=== PATIENT | female | born 1985 | race Hispanic/Latino ===

== ENCOUNTER 2019-01-30 01:57 | Inpatient (IN) | payer OTHER ==
[2019-01-30 02:21] VITALS: BMI 30.7
[2019-01-30] MEDS ORDERED: hydrALAZINE 20 MG/ML VIAL SLOW IVP PRN ×2 (02:33→07:26)
[2019-01-30] MEDS ORDERED: Butorphanol Tartrate 1 MG/ML VIAL SLOW IVP PRN (02:33)
[2019-01-30] MEDS ORDERED: Ibuprofen 800 MG TAB PO PRN (02:33)
[2019-01-30] MEDS ORDERED: Promethazine HCl 25 MG/ML VIAL IM PRN ×2 (02:33→07:26)
[2019-01-30] MEDS ORDERED: Lidocaine 1% (PF) 30 ML VIAL SC PRN (02:33)
[2019-01-30] MEDS ORDERED: Ondansetron PF 4 MG/2 ML Vial IVP PRN ×2 (02:33→07:26)
[2019-01-30] MEDS ORDERED: HYDROcodone/Acetaminophen 5/325 mg Tablet PO PRN ×4 (02:33→07:26)
--- NOTE | 2019-01-30 02:35 | PDOC.EVN ---
Event Note - Event Note Event Note: [employer] Time: [address] admit orders (courtesy) for direct admit for Dr Owusu Patient not seen by me Orders placed for admit GBS neg
[2019-01-30] MEDS ORDERED: Lactated Ringer's 1,000 ML IV SCH (02:45)
[2019-01-30] MEDS ORDERED: NS / Oxytocin 40 units/1000ml 1,000 ML ONE (02:47)
[2019-01-30] MEDS ORDERED: Methylergonovine 0.2 MG/ML VIAL ONE (02:48)
[2019-01-30] MEDS ORDERED: Misoprostol 200 MCG TAB ONE (02:48)
[2019-01-30 02:52] LABS: Hemoglobin 12.2 g/dL (12.0-16.0); Mean Corpuscular HGB CONC 34.7 g/dL (32.0-36.0); Mean Corpuscular Hemoglobin 27.7 pg (27.0-31.0); Mean Corpuscular Volume 79.8 fL (78.0-98.0); Platelet Count 219 thou/uL (130-400); White Blood Cell (WBC) Count 6.8 thou/uL (4.8-10.8)
[2019-01-30 03:32] LABS: HBSAg Index 0.39 S/CO (0-0.99); HIV (1/2) Antibody/Antigen Non-Reactive (NonReactive); HIV 1/2 INDEX 0.09 S/CO (<1.00); Hep B Surf Ag Non-Reactive S/CO (NonReactive)
[2019-01-30] MEDS: NS / Oxytocin 40 units/1000ml 1,000 ML IV PRN ×2 (03:43→04:50)
[2019-01-30 05:06] LABS: Syphilis Antibody Nonreactive (Nonreactive); Syphilis Antibody Index 0.03 S/CO (<1.00 Non-Reactive)
[2019-01-30] MEDS ORDERED: Lanolin Ointment 7 GM TUBE TOP PRN (07:26)
[2019-01-30] MEDS ORDERED: Milk Of Magnesia 30 ML UDCUP PO PRN (07:26)
[2019-01-30] MEDS ORDERED: diphenhydrAMINE 25 MG CAP PO PRN (07:26)
[2019-01-30] MEDS ORDERED: Preparation H Ointment 28 GM TUBE PR PRN (07:26)
[2019-01-30] MEDS ORDERED: NS / Oxytocin 40 units/1000ml 1,000 ML IV SCH (07:26)
[2019-01-30] MEDS ORDERED: Methylergonovine 0.2 MG/ML VIAL IM PRN (07:26)
[2019-01-30] MEDS ORDERED: Bisacodyl 10 MG SUPP PR PRN (07:26)
[2019-01-30] MEDS ORDERED: Misoprostol 200 MCG TAB VAG PRN (07:26)
[2019-01-30] MEDS ORDERED: Benzocaine-Menthol 82.5 ML CAN TOP PRN (07:26)
[2019-01-30] MEDS: Ferrous Sulfate 325 MG TAB PO SCH ×2 (10:09→16:26)
[2019-01-30] MEDS: Prenatal Vitamin 1 TAB PO SCH (10:09)
[2019-01-30] MEDS: Docusate Calcium (SURFAK) 240 MG CAP PO SCH ×2 (10:09→21:48)
[2019-01-30] MEDS ORDERED: Varicella virus, LIVE 0.5 ML VIAL SC ONE (11:00)
[2019-01-30] MEDS ORDERED: Measles/Mumps/Rubella 10 MCG/0.5 ML VIAL SC ONE (11:00)
[2019-01-30] MEDS ORDERED: Adacel (T-DAP) 0.5 ML SYRINGE IM ONE (11:00)
[2019-01-30] MEDS: Ibuprofen 800 MG TAB PO SCH ×2 (14:34→21:48)
[2019-01-31] MEDS: Ibuprofen 800 MG TAB PO SCH ×2 (05:34→14:03)
[2019-01-31 06:27] LABS: Hemoglobin 11.7 g/dL (12.0-16.0); Mean Corpuscular HGB CONC 34.4 g/dL (32.0-36.0); Mean Corpuscular Hemoglobin 28.2 pg (27.0-31.0); Mean Corpuscular Volume 81.9 fL (78.0-98.0); Mean Platelet Volume 8.8 fL (7.4-10.4); Platelet Count 202 thou/uL (130-400); RBC Distribution Width 14.3 % (11.5-14.5); Red Blood Cell (RBC) Count 4.15 mill/uL (4.20-5.40); White Blood Cell (WBC) Count 7.9 thou/uL (4.8-10.8)
[2019-01-31] MEDS: Ferrous Sulfate 325 MG TAB PO SCH (09:34)
[2019-01-31] MEDS: Docusate Calcium (SURFAK) 240 MG CAP PO SCH (09:35)
[2019-01-31 10:00] VITALS: BP 112/62; TEMP 97.7
[2019-01-31] MEDS: Prenatal Vitamin 1 TAB PO SCH (12:38)
--- NOTE | 2019-01-31 13:15 | PDOC.PP ---
Post Progress Note Post Day #: 1 PO intake tolerated: yes Flatus: yes Ambulation: yes Vital Signs (12 hours) Temp Pulse Resp BP Pulse Ox 01/31/19 08:25 97.7 F 66 20 112/62 97 01/31/19 05:30 98.5 F 69 16 113/58 L Weight Weight 168 lb - Physical Examination General: NAD Cardiovascular: RRR Abdominal: + bowel sounds, lochia, no distention Extremities: negative homans (B) Psychiatric: A&Ox3, normal affect Result Diagrams: 01/31/19 06:18 Additional Labs: Post Labs Blood Type O POSITIVE 01/30/19 03:06 Hep Bs Antigen Non-Reactive S/CO (NonReactive) 01/30/19 02:43 - Assessment/Plan dioing well ppd 1. desires dc.
== END 2019-01-31 15:30 | disposition home or self-care (01) | DRG 807 ==
LOC: L&D/OP 01:57 → L&D 03:09 → 3SW 07:47
PROVIDERS: ADMIT Obstetrics & Gynecology; ATTEND Obstetrics & Gynecology
PROC: 10E0XZZ Delivery of Products of Conception, External Approach (ICD-10-PCS; principal; 2019-01-30)
DX: O62.3 Precipitate labor (principal); Z37.0 Single live birth; Z3A.39 39 weeks gestation of pregnancy
CPT/HCPCS: 36415; 85027; 86780; 86850; 86900; 86901; 87340; 87389; 90715; 99285; J2001; J2210

== ENCOUNTER 2023-01-22 15:26 | Emergency (ER) | payer OTHER, SELFPAY ==
[~2023-01-22 15:26] MED LIST: Iopamidol-370 76% 500 ML MDV (1 ML CHARGE) ONE
[2023-01-22 16:09] LABS: #Monocytes 0.4 thou/uL (0.11-0.59); #Neutrophils 6.9 thou/uL (1.40-6.50); %Basophils 0.2 % (0.0-1.0); %Eosinophils 0.2 % (0.0-10.0); %Lymphocytes 13.7 % (21.0-51.0); %Monocytes 4.1 % (0.0-10.0); %Neutrophils 81.2 % (42.0-75.0); Hemoglobin 14.2 g/dL (12.0-16.0); Mean Corpuscular HGB CONC 34.2 g/dL (32.0-36.0); Mean Corpuscular Hemoglobin 30.1 pg (27.0-31.0); Mean Corpuscular Volume 88.1 fl (78.0-98.0); Mean Platelet Volume 10.4 fL (7.4-10.4); Platelet Count 276 10x3/uL (130-400); RBC Distribution Width 12.9 % (11.5-14.5); Red Blood Cell (RBC) Count 4.71 mill/uL (4.20-5.40); White Blood Cell (WBC) Count 8.5 10x3/uL (4.8-10.8)
[2023-01-22 16:17] LABS: BHCG - Serum Negative (NEGATIVE); Pregs Control Background? CLEAR/WHITE (CLR/WHITE); Pregs Control Bar Appear? YES (CONTROL BAR)
[2023-01-22 16:39] LABS: ALT (SGPT) 15 U/L (8-55); AST (SGOT) 19 U/L (5-34); Albumin 4.4 g/dL (3.5-5.0); Alkaline Phosphatase 62 U/L (40-110); Anion Gap 10 mmol/L (10-20); BUN (Urea Nitrogen) 14 mg/dL (7.0-18.7); Bilirubin, Total 0.8 mg/dL (0.2-1.2); Calc. Creatinine Clearance 0 mL/min (70-130); Calcium 9.1 mg/dL (7.8-10.44); Carbon Dioxide 25 mmol/L (22-29); Chloride 103 mmol/L (98-107); Estimated GFR 104; Globulin 2.6 g/dL (2.4-3.5); Glucose 103 mg/dL (70-105); Lipase 32 U/L (8-78); Potassium 3.8 mmol/L (3.5-5.1); Sodium 134 mmol/L (136-145)
[2023-01-22 16:56] LABS: Bacteria/HPF None Seen HPF (None Seen); Bilirubin Negative (Negative); Blood, Urine Negative (Negative); CAUTI Indications for Culture Pelvic or flank pain; Clarity Clear (Clear); Glucose, Urine (Dipstick) Normal (Negative); Ketone, Urine 40 mg/dL (Negative); Leukocyte Negative Leu/uL (Negative); Nitrite Negative (Negative); Protein, Urine (Dipstick) 10 mg/dL (Neg-Trace); RBC/HPF 0-3 HPF (0-3); Specific Gravity, Urine 1.031 (1.002-1.036); Urobilinogen Normal mg/dL (Less than 2); WBC/HPF 0-3 HPF (0-3); pH, Urine 5.5 (5.0-9.0)
[2023-01-22 16:57] LABS: Urine Culture Reflex No No
[2023-01-22] MEDS ORDERED: Ketorolac Tromethamine 30 MG/ML VIAL ONE (18:03)
[2023-01-22] MEDS ORDERED: Dicyclomine 20 MG TAB ONE (18:03)
== END 2023-01-22 18:26 | disposition home or self-care (01) ==
LOC: ERS 15:26
DX: K52.9 Noninfective gastroenteritis and colitis, unspecified (principal)
CPT/HCPCS: 36415; 74177; 80053; 81001; 83690; 84703; 85025; 96374; J1885; Q9967